=== PATIENT | male | born 1980 | race Two or more races ===

== ENCOUNTER 2021-06-04 19:05 | Emergency (ER) | payer SELFPAY ==
[~2021-06-04] VITALS: Ht 172.7 cm; Wt 90.7 kg
[2021-06-04] MEDS ORDERED: IV NS 0.9% 1,000 ML BAG IV ONE (19:30)
--- NOTE | 2021-06-04 20:04 | NUR ---
PT BIBRA 878 FOR ETOH, PLACED IN BED 14 ON MONITOR AND PULSE OX. ER MD AT BEDSIDE. AWAITING ER MD FOR FOR EVAL AND ORDERS.
[2021-06-04 21:06] LABS: BASOPHILS # (AUTO) 0.1 K/uL (0.0-0.2); BASOPHILS % (AUTO) 1.1 % (0.0-2.0); EOSINOPHILS % (AUTO) 1.4 % (0.0-6.0); HEMATOCRIT 43 % (39-51); HEMOGLOBIN 14.7 g/dL (13.5-17.5); LYMPHOCYTES # (AUTO) 2.4 K/uL (0.8-4.8); LYMPHOCYTES % (AUTO) 31.3 % (20.0-44.0); MEAN CORPUSCULAR HGB CONC 35 g/dl (31.0-36.0); MEAN CORPUSCULAR VOLUME 89 fL (80-96); MONOCYTES # (AUTO) 0.5 K/uL (0.1-1.30); MONOCYTES % (AUTO) 6.6 % (2.0-12.0); NEUTROPHILS # (AUTO) 4.5 K/uL (1.8-8.9); NEUTROPHILS % (AUTO) 59.6 % (43.0-81.0); PLATELET COUNT (AUTO) 334 K/uL (150-450); RED BLOOD CELL COUNT(AUTO) 4.79 MIL/uL (4.5-6.0); WHITE BLOOD COUNT (AUTO) 7.6 K/uL (4.3-11.0)
[2021-06-04 21:20] LABS: CALCIUM, SERUM 7.7 mg/dL (8.5-10.1); CARBON DIOXIDE 28 mmol/L (21-32); CHLORIDE 102 mmol/L (98-107); CREATININE 0.8 mg/dL (0.6-1.3); GLUCOSE 151 mg/dL (74-106); POTASSIUM 3.3 mmol/L (3.5-5.1); SODIUM SERUM 142 mmol/L (136-145); UREA NITROGEN, BLOOD 21 mg/dL (7-18)
--- NOTE | 2021-06-04 21:21 | NUR ---
BROUGHT TO CT
[2021-06-04 21:28] LABS: ALBUMIN 3.6 g/dL (3.4-5.0); ALCOHOL, BLOOD 409 mg/dL (0-0); ALKALINE PHOSPHATASE 100 U/L (46-116); TOTAL PROTEIN, SERUM 7.5 g/dL (6.4-8.2)
[2021-06-04 21:32] LABS: ACETAMINOPHEN < 0 ug/ml (10-30)
--- NOTE | 2021-06-04 21:33 | NUR ---
BROUGHT BACK FROM CT, ON MONITOR, AND PULSE OX. PLACED ON 2L NC FOR SUPP O2. VSS. WILL CONTINUE TO MONITOR.
--- NOTE | 2021-06-04 21:34 | NUR ---
PT RETURN FROM CT.
--- NOTE | 2021-06-04 21:35 | NUR ---
UNABLE TO PROVIDE URINE, DOES NOT WANT A CATHETER
--- NOTE | 2021-06-04 22:24 | NUR ---
TP 0.14 ALT 143 AST 57 CORRECTED LABS
[2021-06-04 22:26] LABS: ALANINE AMINOTRANSFERASE 143 U/L (12-78); ASPARTATE AMINOTRANSFERASE 57 U/L (15-37); BILIRUBIN,TOTAL 0.1 mg/dL (0.2-1.0)
--- NOTE | 2021-06-05 00:59 | NUR ---
PT IS AWAKE , ALERT AND RESPONSIVE. BREATHING EVENLY. NO DISTRESS. PO INTAKE TOLERATED WELL. AMBULATORY WITH STEADY GAITS. REPORTED FEELING GOOD AND WILLING TO LEAVE . MD AWARE W/ AN ORDER W/ DISCHARGE HOME
[2021-06-05 01:39] VITALS: BP 118/76
== END 2021-06-05 01:00 | disposition home or self-care (01) ==
LOC: ER 19:07
DX: F10.129 Alcohol abuse with intoxication, unspecified (principal); R41.82 Altered mental status, unspecified; R00.0 Tachycardia, unspecified; H55.00 Unspecified nystagmus; Y90.8 Blood alcohol level of 240 mg/100 ml or more
CPT/HCPCS: 36415; 70450-TC; 80048-TC; 80076-TC; 85025-TC; G0480